=== PATIENT | female | born 1960 | race Caucasian/White ===

== ENCOUNTER → 2017-06-10 | Outpatient (CLI) | payer OTHER ==
[~2017-06-10] MED LIST: ALPR-475 PO; CHOL2000 PO; NALT1TAB PO
== END | disposition home or self-care (01) ==
LOC: CFH 14:37 → MERGE 14:37
PROVIDERS: ATTEND Internal Medicine Hematology & Oncology
DX: Z12.31 Encounter for screening mammogram for malignant neoplasm of breast (principal)
CPT/HCPCS: G0202

== ENCOUNTER → 2018-06-13 | Outpatient (CLI) | payer OTHER | END | disposition home or self-care (01) | LOC: CFH 12:33 | PROVIDERS: ATTEND Internal Medicine Hematology & Oncology | DX: Z12.31 Encounter for screening mammogram for malignant neoplasm of breast (principal); Z85.3 Personal history of malignant neoplasm of breast; Z90.11 Acquired absence of right breast and nipple | CPT/HCPCS: 77067 ==

== ENCOUNTER → 2018-12-08 | Outpatient (CLI) | payer OTHER | END | disposition home or self-care (01) | LOC: CFH 12:08 | PROVIDERS: ATTEND Internal Medicine Hematology & Oncology | DX: M81.0 Age-related osteoporosis without current pathological fracture (principal) | CPT/HCPCS: 77080 ==

== ENCOUNTER 2019-06-18 12:24 | Outpatient (CLI) | payer OTHER | END 2019-06-18 23:59 | disposition home or self-care (01) | LOC: CFH 12:24 | PROVIDERS: ATTEND Internal Medicine Hematology & Oncology | DX: Z12.31 Encounter for screening mammogram for malignant neoplasm of breast (principal) | CPT/HCPCS: 77063; 77067 ==

== ENCOUNTER → 2020-07-18 | Outpatient (CLI) | payer OTHER ==
[~2020-07-18] MED LIST changes: -ALPR-475 PO; +ALPR0.5T7 PO; +ANAS1TAB49 PO
== END | disposition home or self-care (01) ==
LOC: CFH 13:48
PROVIDERS: ATTEND Internal Medicine Hematology & Oncology
DX: Z12.31 Encounter for screening mammogram for malignant neoplasm of breast (principal); N64.89 Other specified disorders of breast
CPT/HCPCS: 77063; 77067

== ENCOUNTER 2021-08-08 10:37 | Outpatient (CLI) | payer OTHER | END 2021-08-08 23:59 | disposition home or self-care (01) | LOC: CFH 10:37 | PROVIDERS: ATTEND Family Medicine | DX: Z12.31 Encounter for screening mammogram for malignant neoplasm of breast (principal); M85.88 Other specified disorders of bone density and structure, other site; M81.8 Other osteoporosis without current pathological fracture | CPT/HCPCS: 77063; 77067; 77080 ==